=== PATIENT | male | born 1960 | race Caucasian/White ===

== ENCOUNTER 2020-06-13 14:32 | Inpatient (IN) | payer MEDICAID, OTHER ==
[~2020-06-13] VITALS: Ht 177.8 cm; Wt 74.1 kg
[2020-06-13] MEDS ORDERED: CLINDAMYCIN 600MG IV 50 ML IV ONE ×2 (15:00→16:15)
[2020-06-13] MEDS ORDERED: SODIUM CHLORIDE 0.9% 1,000 ML IV ONE (15:00)
[2020-06-13 17:51] LABS: Basophils # (auto) 0 10 ^3/uL (0-0.2); Basophils % (auto) 0.2 % (0.0-2.0); Eosinophils # (auto) 0 10 ^3/uL (0-0.8); Hematocrit 50.1 % (41.0-53.0); Hemoglobin 16.8 g/dL (13.5-17.5); Lymphocytes % (auto) 15.6 % (10.0-50.0); Mean Corpuscular Hemoglobin 28.6 pg (28.0-32.0); Mean Corpuscular Hgb Conc. 33.5 g/dL (32.0-36.0); Mean Corpuscular Volume 85.4 fL (80.0-100.0); Monocytes # (auto) 1.6 10 ^3/uL (0-1.3); Monocytes % (auto) 6.3 % (0.0-12.0); Neutrophils # (auto) 19.8 10 ^3/uL (1.6-8.6); Neutrophils % (auto) 77.9 % (37.0-80.0); Nucleated Red Blood Cells % 0.6 %; Platelet Count (auto) 359 10^3/uL (140-450); Red Blood Cells 5.86 10^6/uL (4.5-5.90); Red Cell Distribution Width 14.9 % (11.8-14.3); White Blood Cell 25.5 10^3/uL (4.4-10.8)
[2020-06-13 18:05] LABS: Anion Gap 11 (5-15); Calcium 7.4 mg/dL (8.5-10.1); Carbon Dioxide 22 mmol/L (21-32); Chloride 93 mmol/L (98-107); Glucose 108 mg/dL (74-106); Sodium 126 mmol/L (136-145)
[2020-06-13 18:08] LABS: Alanine Aminotransferase 31 U/L (16-61); Alkaline Phosphatase 72 U/L (45-117); Aspartate Aminotransferase 105 U/L (15-37); BUN/Creatinine Ratio 40.9; Bilirubin, Total 0.5 mg/dL (0.2-1.0); Blood Urea Nitrogen 72 mg/dL (7-18); GFR African American 51 mL/min; GFR Non-African American 42 mL/min
[2020-06-13 18:10] LABS: Lactic Acid w/Reflex 2.5 mmol/L (0.4-2.0)
[2020-06-13] MEDS ORDERED: NITROGLYCERIN 0.4 MG SL TAB SL PRN (20:45)
[2020-06-13] MEDS ORDERED: MORPHINE SULF INJ 2 MG/ML SYRINGE 1ML IV PRN (20:45)
[2020-06-13] MEDS ORDERED: ONDANSETRON HCL 4 MG/2 ML VIAL IV PRN (20:45)
[2020-06-13] MEDS: CLINDAMYCIN 900MG IV 50 ML IV SCH (22:40)
[2020-06-13] MEDS: SODIUM CHLORIDE 0.9% 1,000 ML IV SCH (22:40)
[2020-06-14] MEDS: HYDROcodone-ACET 5/325MG TAB PO PRN ×2 (00:30→06:24)
[2020-06-14 01:45] VITALS: BP 131/56
[2020-06-14] MEDS: CLINDAMYCIN 900MG IV 50 ML IV SCH ×3 (05:01→21:40)
[2020-06-14 05:02] VITALS: BP 126/78
[2020-06-14] MEDS: SODIUM CHLORIDE 0.9% 1,000 ML IV SCH ×2 (05:22→17:38)
[2020-06-14 08:40] LABS: Basophils # (auto) 0 10 ^3/uL (0-0.2); Basophils % (auto) 0.1 % (0.0-2.0); Eosinophils # (auto) 0 10 ^3/uL (0-0.8); Hematocrit 45.7 % (41.0-53.0); Hemoglobin 15.8 g/dL (13.5-17.5); Lymphocytes # (auto) 2.9 10 ^3/uL (0.4-5.4); Lymphocytes % (auto) 14.5 % (10.0-50.0); Mean Corpuscular Hemoglobin 28.8 pg (28.0-32.0); Mean Corpuscular Hgb Conc. 34.5 g/dL (32.0-36.0); Mean Corpuscular Volume 83.5 fL (80.0-100.0); Monocytes # (auto) 1.5 10 ^3/uL (0-1.3); Monocytes % (auto) 7.2 % (0.0-12.0); Neutrophils # (auto) 15.8 10 ^3/uL (1.6-8.6); Neutrophils % (auto) 78.2 % (37.0-80.0); Nucleated Red Blood Cells % 0.1 %; Platelet Count (auto) 320 10^3/uL (140-450); Red Blood Cells 5.47 10^6/uL (4.5-5.90); Red Cell Distribution Width 14.7 % (11.8-14.3); White Blood Cell 20.2 10^3/uL (4.4-10.8)
[2020-06-14 08:51] LABS: Calcium 7.5 mg/dL (8.5-10.1); Potassium 4.7 mmol/L (3.5-5.1)
[2020-06-14 08:53] LABS: BUN/Creatinine Ratio 45.3
[2020-06-14 08:57] VITALS: BP 124/69
[2020-06-14] MEDS: ENOXAPARIN SOD 40 MG/0.4 ML SYRINGE SC SCH (10:00)
[2020-06-14] MEDS: levoFLOXacin 500MG 100 ML IV SCH (10:17)
[2020-06-14 11:16] LABS: INR 1.19 (0.9-1.15); Partial Thromboplastin Time 29.6 sec (23.0-31.2)
[2020-06-14 12:43] VITALS: BP 124/86
[2020-06-14] MEDS: MORPHINE SULF INJ 2 MG/ML SYRINGE 1ML IV PRN (15:02)
[2020-06-14 16:24] VITALS: BP 125/84
[2020-06-14] MEDS: LORazepam 2MG/ML-1ML VIAL IV PRN (17:40)
[2020-06-14 22:00] VITALS: BP 135/82
[2020-06-14] MEDS ORDERED: chlordiazePOXIDE HCL 25 MG CAP PO PRN (22:30)
[2020-06-14] MEDS: FOLIC ACID 1 MG TAB PO SCH (23:18)
[2020-06-15] MEDS: SODIUM CHLORIDE 0.9% 1,000 ML IV SCH ×3 (02:29→22:58)
[2020-06-15] MEDS: LORazepam 2MG/ML-1ML VIAL IV PRN (04:23)
[2020-06-15] MEDS: CLINDAMYCIN 900MG IV 50 ML IV SCH ×3 (05:50→21:16)
[2020-06-15 06:30] LABS: Basophils # (auto) 0 10 ^3/uL (0-0.2); Basophils % (auto) 0.2 % (0.0-2.0); Eosinophils # (auto) 0 10 ^3/uL (0-0.8); Hematocrit 42.2 % (41.0-53.0); Hemoglobin 14.4 g/dL (13.5-17.5); Lymphocytes # (auto) 2.8 10 ^3/uL (0.4-5.4); Lymphocytes % (auto) 17.9 % (10.0-50.0); Mean Corpuscular Hemoglobin 28.7 pg (28.0-32.0); Mean Corpuscular Hgb Conc. 34.1 g/dL (32.0-36.0); Mean Corpuscular Volume 84.2 fL (80.0-100.0); Monocytes # (auto) 1.1 10 ^3/uL (0-1.3); Monocytes % (auto) 7.4 % (0.0-12.0); Neutrophils # (auto) 11.5 10 ^3/uL (1.6-8.6); Neutrophils % (auto) 74.5 % (37.0-80.0); Nucleated Red Blood Cells % 0.2 %; Platelet Count (auto) 275 10^3/uL (140-450); Red Blood Cells 5.01 10^6/uL (4.5-5.90); Red Cell Distribution Width 14.5 % (11.8-14.3); White Blood Cell 15.5 10^3/uL (4.4-10.8)
[2020-06-15 06:56] LABS: Potassium 4.2 mmol/L (3.5-5.1)
[2020-06-15] MEDS ORDERED: ceFAZolin 1GM VL ONE (07:08)
[2020-06-15] MEDS ORDERED: fentaNYL CITRATE 100 MCG/2 ML VL ONE (07:09)
[2020-06-15] MEDS ORDERED: MIDAZOLAM HCL 1MG/1ML-2 ML VIAL ONE (07:10)
[2020-06-15 07:12] LABS: BUN/Creatinine Ratio 35.6; Calcium 7.3 mg/dL (8.5-10.1)
[2020-06-15] MEDS ORDERED: PROPOFOL 10 MG/ML 20 ML IV ONE (07:43)
[2020-06-15] MEDS ORDERED: ONDANSETRON HCL 4 MG/2 ML VIAL ONE (07:44)
[2020-06-15] MEDS ORDERED: METOCLOPRAMIDE HCL 5MG/ml INJ 2ml VIAL IV PRN (08:30)
[2020-06-15] MEDS ORDERED: HYDROmorphone HCL 2 MG/ML VL IV PRN ×2 (08:30)
[2020-06-15] MEDS: levoFLOXacin 500MG 100 ML IV SCH (09:30)
[2020-06-15] MEDS: ENOXAPARIN SOD 40 MG/0.4 ML SYRINGE SC SCH (09:31)
[2020-06-15] MEDS: THIAMINE HCL 100 MG TAB PO SCH (09:31)
[2020-06-15] MEDS: FOLIC ACID 1 MG TAB PO SCH (10:40)
[2020-06-15 13:00] VITALS: BP 129/55
[2020-06-15] MEDS ORDERED: LEVO500T31 PO (14:52)
[2020-06-15] MEDS ORDERED: FOLI1TAB6 PO (14:52)
[2020-06-15] MEDS ORDERED: THIA50CA PO (14:52)
[2020-06-15] MEDS ORDERED: CLIN300C8 PO (14:52)
[2020-06-15] MEDS ORDERED: ACET325T10 PO (14:52)
[2020-06-15 17:00] VITALS: BP 130/69
[2020-06-15 20:00] VITALS: BP 121/70
[2020-06-15] MEDS: MORPHINE SULF INJ 2 MG/ML SYRINGE 1ML IV PRN (20:20)
[2020-06-15 22:00] VITALS: BP 121/70
[2020-06-16 05:00] VITALS: BP 128/77
[2020-06-16] MEDS: CLINDAMYCIN 900MG IV 50 ML IV SCH (05:25)
[2020-06-16] MEDS: MORPHINE SULF INJ 2 MG/ML SYRINGE 1ML IV PRN (05:25)
[2020-06-16 06:06] LABS: Basophils # (auto) 0 10 ^3/uL (0-0.2); Basophils % (auto) 0.1 % (0.0-2.0); Eosinophils # (auto) 0 10 ^3/uL (0-0.8); Eosinophils % (auto) 0.1 % (0.0-7.0); Hematocrit 38.9 % (41.0-53.0); Hemoglobin 13.1 g/dL (13.5-17.5); Lymphocytes # (auto) 2.9 10 ^3/uL (0.4-5.4); Lymphocytes % (auto) 23.5 % (10.0-50.0); Mean Corpuscular Hemoglobin 28.4 pg (28.0-32.0); Mean Corpuscular Hgb Conc. 33.6 g/dL (32.0-36.0); Mean Corpuscular Volume 84.5 fL (80.0-100.0); Monocytes # (auto) 0.8 10 ^3/uL (0-1.3); Monocytes % (auto) 6.6 % (0.0-12.0); Neutrophils # (auto) 8.5 10 ^3/uL (1.6-8.6); Neutrophils % (auto) 69.7 % (37.0-80.0); Nucleated Red Blood Cells % 0.1 %; Platelet Count (auto) 240 10^3/uL (140-450); Red Cell Distribution Width 14.8 % (11.8-14.3); White Blood Cell 12.2 10^3/uL (4.4-10.8)
[2020-06-16 06:25] LABS: Potassium 3.6 mmol/L (3.5-5.1)
[2020-06-16 06:27] LABS: BUN/Creatinine Ratio 26.8; Calcium 6.9 mg/dL (8.5-10.1)
[2020-06-16 08:59] VITALS: BP 138/77
[2020-06-16] MEDS: levoFLOXacin 500MG 100 ML IV SCH (09:06)
[2020-06-16] MEDS: FOLIC ACID 1 MG TAB PO SCH (09:06)
[2020-06-16] MEDS: THIAMINE HCL 100 MG TAB PO SCH (09:07)
[2020-06-16] MEDS: ENOXAPARIN SOD 40 MG/0.4 ML SYRINGE SC SCH (09:07)
[2020-06-16] MEDS: SODIUM CHLORIDE 0.9% 1,000 ML IV SCH (09:24)
== END 2020-06-16 11:30 | disposition left against medical advice (07) | DRG 720 ==
LOC: ER 14:32 → EDBD 14:32 → OVERFLOW 21:01 → CENTRAL 06-14 01:10
PROVIDERS: ADMIT Internal Medicine; ATTEND Hospitalist
PROC: 05HB33Z Insertion of Infusion Device into Right Basilic Vein, Percutaneous Approach (ICD-10-PCS; 2020-06-14)
PROC: B54MZZA Ultrasonography of Right Upper Extremity Veins, Guidance (ICD-10-PCS; 2020-06-14)
PROC: 0JBP0ZZ Excision of Left Lower Leg Subcutaneous Tissue and Fascia, Open Approach (ICD-10-PCS; principal; 2020-06-15 07:17)
DX: A41.9 Sepsis, unspecified organism (principal); N17.9 Acute kidney failure, unspecified; E87.8 Other disorders of electrolyte and fluid balance, not elsewhere classified; E87.1 Hypo-osmolality and hyponatremia; F11.20 Opioid dependence, uncomplicated; L97.529 Non-pressure chronic ulcer of other part of left foot with unspecified severity; Z20.822 Contact with and (suspected) exposure to COVID-19; B87.9 Myiasis, unspecified; F17.210 Nicotine dependence, cigarettes, uncomplicated; T80.29XA Infection following other infusion, transfusion and therapeutic injection, initial encounter; F10.20 Alcohol dependence, uncomplicated; T50.995A Adverse effect of other drugs, medicaments and biological substances, initial encounter; Z53.29 Procedure and treatment not carried out because of patient's decision for other reasons; L03.116 Cellulitis of left lower limb; E86.0 Dehydration; Z59.0 Homelessness; Z56.0 Unemployment, unspecified; Y83.8 Other surgical procedures as the cause of abnormal reaction of the patient, or of later complication, without mention of misadventure at the time of the procedure; Y92.89 Other specified places as the place of occurrence of the external cause
CPT/HCPCS: 36415; 71045; 73700; 80048; 80053; 83605; 85025; 85610; 85730; 86850; 86900; 86901; 87070; 87075; 87077; 87186; 87205; 87426; 87493; 96365; G0378; J0690; J1956; J2250; J2405; J2704; J3490

== ENCOUNTER 2020-06-19 10:15 | Emergency (ER) | payer MEDICAID ==
[~2020-06-19] VITALS: Ht 162.6 cm; Wt 59.0 kg
[~2020-06-19 10:15] MED LIST: ACET325T10 PO; CLIN300C8 PO; FOLI1TAB6 PO; LEVO500T31 PO; THIA50CA PO
[2020-06-19 10:16] VITALS: BP 166/79
== END 2020-06-19 11:33 | disposition left against medical advice (07) ==
LOC: ER 10:15
DX: Z48.00 Encounter for change or removal of nonsurgical wound dressing (principal); Z53.21 Procedure and treatment not carried out due to patient leaving prior to being seen by health care provider